=== PATIENT | male | born 1955 | race Caucasian/White ===

== ENCOUNTER 2022-08-02 17:03 | Emergency (ER) | payer MEDICARE ==
[~2022-08-02] VITALS: Ht 165.1 cm; Wt 78.0 kg
[2022-08-02 17:24] VITALS: BP 125/88
--- NOTE | 2022-08-02 17:59 | NUR ---
PATIENT CAME FROM [facility] @ [place] ADDRESS: [id number] [facility]. [facility] [id number] P:[phone]
--- NOTE | 2022-08-02 18:23 | NUR ---
[facility] CALLED, ETA 90 MINS.
--- NOTE | 2022-08-02 18:50 | NUR ---
PT UNABLE TO SIGN D/C FORM. FORM SIGNED BY ME AND COSIGNED BY ANOTHER ELISA LIRIANO.
--- NOTE | 2022-08-02 18:57 | NUR ---
REPORT GIVEN TO POPPY NURSE AT [facility]. PT EXPECTED BY STAFF TO COME BACK. DISCHARGE INSTRUCTIONS PROVIDED.
--- NOTE | 2022-08-02 21:29 | NUR ---
[facility] 325 AT BEDSIDE FOR PT TRANSPORT BACK TO HIS FACILITY. PT IS IN STABLE CONDITION. REPORT GIVEN.
== END 2022-08-02 21:53 | disposition home or self-care (01) ==
LOC: ER 17:05
DX: S62.102D Fracture of unspecified carpal bone, left wrist, subsequent encounter for fracture with routine healing (principal); Z86.69 Personal history of other diseases of the nervous system and sense organs; I10 Essential (primary) hypertension; X58.XXXD Exposure to other specified factors, subsequent encounter

== ENCOUNTER 2024-06-15 14:24 | Inpatient (IN) | payer MEDICARE ==
[~2024-06-15] VITALS: Ht 172.7 cm; Wt 83.5 kg
[2024-06-15 15:59] LABS: BASOPHILS % (AUTO) 0.8 % (0.0-2.0); EOSINOPHILS # (AUTO) 0.1 K/uL (0.0-0.7); EOSINOPHILS % (AUTO) 2.1 % (0.0-6.0); HEMATOCRIT 37 % (39-51); HEMOGLOBIN 12.3 g/dL (13.5-17.5); LYMPHOCYTES # (AUTO) 1.3 K/uL (0.8-4.8); LYMPHOCYTES % (AUTO) 25.1 % (20.0-44.0); MEAN CORPUSCULAR HEMOGLOBIN 26 PG (26.0-33.0); MEAN CORPUSCULAR HGB CONC 33 g/dl (31.0-36.0); MEAN CORPUSCULAR VOLUME 79 fL (80-96); MONOCYTES # (AUTO) 0.5 K/uL (0.1-1.30); MONOCYTES % (AUTO) 9.9 % (2.0-12.0); NEUTROPHILS # (AUTO) 3.2 K/uL (1.8-8.9); NEUTROPHILS % (AUTO) 62.1 % (43.0-81.0); PLATELET COUNT (AUTO) 185 K/uL (150-450); RED BLOOD CELL COUNT(AUTO) 4.73 MIL/uL (4.5-6.0); RED CELL DISTRIBUTION WIDTH 14.1 % (11.5-15.0); WHITE BLOOD COUNT (AUTO) 5.1 K/uL (4.3-11.0)
[2024-06-15 16:11] LABS: CALCIUM, SERUM 9.4 mg/dL (8.5-10.1); CARBON DIOXIDE 26 mmol/L (21-32); CHLORIDE 101 mmol/L (98-107); GLUCOSE 110 mg/dL (74-106); POTASSIUM 3.8 mmol/L (3.5-5.1); SODIUM SERUM 134 mmol/L (136-145); UREA NITROGEN, BLOOD 22 mg/dL (7-18)
[2024-06-15 16:16] LABS: ACETAMINOPHEN 0 ug/ml (10-30); ALANINE AMINOTRANSFERASE 38 U/L (12-78); ALBUMIN 3.2 g/dL (3.4-5.0); ALCOHOL, BLOOD < 3 mg/dL (0-10); ALKALINE PHOSPHATASE 84 U/L (46-116); ASPARTATE AMINOTRANSFERASE 19 U/L (15-37); BILIRUBIN,DIRECT 0.1 mg/dL (0.0-0.2); BILIRUBIN,TOTAL 0.2 mg/dL (0.2-1.0); SALICYLATE 1.5 mg/dL (2.8-20.0); TOTAL PROTEIN, SERUM 7.1 g/dL (6.4-8.2)
[2024-06-15] MEDS ORDERED: diphenhydrAMINE HCL 50 MG/ML VIAL ONE (16:43)
[2024-06-15] MEDS ORDERED: OLANZAPINE 10 MG VIAL IM ONE (16:43)
[2024-06-15] MEDS ORDERED: WATER FOR INJECTION,STERILE 10 ML ONE (16:46)
[2024-06-15] MEDS: diphenhydrAMINE HCL 50 MG/ML VIAL IM ONE (16:52)
[2024-06-15] MEDS: OLANZAPINE 10 MG VIAL IM ONE (16:53)
[2024-06-15] MEDS ORDERED: OLAN5TAB6 PO (18:09)
[2024-06-15] MEDS ORDERED: ATOR20TA PO (18:09)
[2024-06-15] MEDS ORDERED: HYDR12.55 PO (18:09)
[2024-06-15] MEDS ORDERED: GUAI200T5 PO (18:09)
[2024-06-15] MEDS ORDERED: OLAN15TA6 PO (18:09)
[2024-06-15] MEDS ORDERED: LORA-259 PO (18:09)
[2024-06-15] MEDS ORDERED: ZINC220T4 PO (18:09)
[2024-06-15] MEDS ORDERED: CHOL500062 PO (18:09)
[2024-06-15] MEDS ORDERED: OMEP20CA15 PO (18:09)
[2024-06-15] MEDS ORDERED: DIVA-78 PO (18:09)
[2024-06-15] MEDS ORDERED: TRAZ-182 PO (18:09)
[2024-06-15] MEDS ORDERED: QUET100T PO (18:09)
[2024-06-15] MEDS ORDERED: ASPI-1420 PO (18:09)
[2024-06-15] MEDS ORDERED: OLAN10TA6 PO (18:09)
[2024-06-15] MEDS ORDERED: ONDA4TAB11 PO (18:09)
[2024-06-15] MEDS ORDERED: LORA2TAB95 PO (18:09)
[2024-06-15] MEDS ORDERED: DEXT15LI PO (18:09)
[2024-06-15] MEDS ORDERED: [UNRECOGNIZED DRUG - CODE] PO (18:09)
[2024-06-15] MEDS ORDERED: QUET300T2 PO (18:09)
[2024-06-15] MEDS ORDERED: AMLO-212 PO (18:09)
[2024-06-15] MEDS ORDERED: LEVO-146 PO (18:09)
[2024-06-15 19:10] LABS: APPEARANCE,URINE CLEAR (CLEAR); BILIRUBIN,URINE NEGATIVE (NEGATIVE); BLOOD, URINE 2+ Ery/uL (NEGATIVE); COLOR,URINE YELLOW (YELLOW); KETONES,URINE NEGATIVE (NEGATIVE); LEUKOCYTE ESTERASE ,URINE NEGATIVE (NEGATIVE); NITRITE, URINE NEGATIVE (NEGATIVE); PH,URINE 7.5 (5.0-8.0); PROTEIN,URINE NEGATIVE (NEGATIVE); UGLUCOSE NEGATIVE (NEGATIVE); UROBILINOGEN,URINE 0.2 EU/dL (0.2)
[2024-06-15 19:16] LABS: AMPHETAMINE, URINE NEGATIVE (NEGATIVE); BARBITURATE, URINE NEGATIVE (NEGATIVE); BENZODIAZEPINE, URINE NEGATIVE (NEGATIVE); CANNABINOID, URINE NEGATIVE (NEGATIVE); COCCAINE, URINE NEGATIVE (NEGATIVE); OPIATE, URINE NEGATIVE (NEGATIVE); PHENCYCLIDINE SCREEN,URINE NEGATIVE (NEGATIVE)
[2024-06-15 20:30] VITALS: BP 148/90; TEMP 97.9; O2SAT 96
[2024-06-15] MEDS ORDERED: QUETIAPINE FUMARATE 25 MG TABLET PO PRN (20:30)
[2024-06-15] MEDS ORDERED: MAGNESIUM HYDROXIDE 30 ML UDC PO PRN (20:30)
[2024-06-15] MEDS ORDERED: MAG HYDROX/AL HYDROX/SIMETH 30 ML UDC PO PRN (20:30)
[2024-06-15] MEDS ORDERED: ACETAMINOPHEN 325 MG TABLET PO PRN (20:30)
[2024-06-15] MEDS: BLOOD SUGAR DIAGNOSTIC 1 EACH STRIP IN ONE (20:52)
[2024-06-15] MEDS: ATORVASTATIN 10 MG TABLET PO SCH (21:17)
[2024-06-15] MEDS: PROPRANOLOL HCL 10 MG TABLET PO SCH (21:20)
[2024-06-15 21:24] VITALS: BP 148/90; TEMP 97.9; O2SAT 96
[2024-06-15] MEDS: TRAZODONE 50 MG TABLET PO SCH (21:34)
[2024-06-15] MEDS: DIVALPROEX SODIUM 125 MG CAP.SPRINK PO SCH (21:34)
[2024-06-15] MEDS ORDERED: Medication Not On Formulary EA (Quetiapine Fumarate (Seroquel) 300 MG) PO SCH (22:00)
[2024-06-15] MEDS: OLANZAPINE ZYDIS 5 MG TAB.RAPDIS PO SCH (22:03)
[2024-06-15 22:27] LABS: ADD URINE CULTURE NO; BACTERIA,URINE Rare /HPF (None Seen); SQUAMOUS EPITHELIAL CELL,UR Rare /HPF (None Seen); WBC,URINE 0-2 /HPF (0-3)
[2024-06-16] MEDS: PANTOPRAZOLE 40 MG TABLET.DR PO SCH (07:30)
[2024-06-16] MEDS: LEVOTHYROXINE SODIUM 50 MCG TABLET PO SCH (07:31)
[2024-06-16 08:00] VITALS: BP 130/81; TEMP 97.9; O2SAT 96
[2024-06-16 08:33] LABS: ALBUMIN 3.1 g/dL (3.4-5.0); BILIRUBIN,TOTAL 0.3 mg/dL (0.2-1.0); CALCIUM, SERUM 9.3 mg/dL (8.5-10.1); CREATININE 0.7 mg/dL (0.6-1.3); POTASSIUM 4.3 mmol/L (3.5-5.1); TOTAL PROTEIN, SERUM 7.3 g/dL (6.4-8.2)
[2024-06-16 08:37] LABS: CHOLESTEROL 204 mg/dL (<200); HDL CHOLESTEROL 55 mg/dL (40-60); LDL 108 mg/dL (0-99); TRIGLYCERIDES 267 mg/dL (30-150)
[2024-06-16] MEDS: HYDROCHLOROTHIAZIDE 25 MG TABLET PO SCH (08:48)
[2024-06-16] MEDS: CHOLECALCIFEROL 1,000 UNIT TABLET (VIT D3) PO SCH (08:48)
[2024-06-16] MEDS: AMLODIPINE BESYLATE 5 MG TABLET PO SCH (08:49)
[2024-06-16] MEDS: ASPIRIN EC 81 MG TABLET.DR PO SCH (08:49)
[2024-06-16] MEDS: ZINC SULFATE 220 MG CAPSULE PO SCH (08:49)
[2024-06-16] MEDS: LORAZEPAM 1 MG TABLET PO SCH (08:53)
[2024-06-16] MEDS ORDERED: OLANZAPINE ZYDIS 5 MG TAB.RAPDIS PO SCH (09:00)
[2024-06-16] MEDS ORDERED: OLANZAPINE 10 MG PO SCH (09:00)
[2024-06-16] MEDS ORDERED: DIVALPROEX SODIUM 500 MG TABLET.DR PO SCH (09:00)
[2024-06-16] MEDS ORDERED: QUETIAPINE FUMARATE 100 MG TABLET PO SCH (09:00)
[2024-06-16 16:00] VITALS: BP 143/89; TEMP 97.7; O2SAT 97
[2024-06-16] MEDS ORDERED: OLANZAPINE 15 MG PO SCH (18:00)
[2024-06-16 20:00] VITALS: BP 118/82; TEMP 97.8; O2SAT 98
[2024-06-17 08:00] VITALS: BP 132/89; TEMP 97.9; O2SAT 96
[2024-06-17] MEDS ORDERED: Z GUARD REMEDY 4 OZ OINT TP PRN (10:00)
[2024-06-17] MEDS: Z GUARD REMEDY 4 OZ OINT TP SCH (10:17)
[2024-06-17 16:00] VITALS: BP 129/82; TEMP 97.6; O2SAT 97
[2024-06-17] MEDS: LORAZEPAM 1 MG TABLET PO SCH (16:22)
[2024-06-17 20:02] VITALS: BP 151/93; TEMP 98.2; O2SAT 95
[2024-06-17 22:00] VITALS: BP 151/93
[2024-06-18 08:00] VITALS: BP 132/94; TEMP 98.1; O2SAT 96
[2024-06-18 16:00] VITALS: BP 123/82; TEMP 97.7; O2SAT 97
[2024-06-19 08:00] VITALS: BP 129/86; TEMP 97.7; O2SAT 97
[2024-06-19 16:00] VITALS: BP 121/94; TEMP 98.9; O2SAT 97
[2024-06-19] MEDS: LORAZEPAM 0.5 MG TABLET PO SCH (16:10)
[2024-06-19] MEDS ORDERED: LORAZEPAM 0.5 MG TABLET PO SCH (17:00)
[2024-06-19 20:00] VITALS: BP 129/80; TEMP 98.6; O2SAT 98
[2024-06-19] MEDS: DIVALPROEX SODIUM 125 MG CAP.SPRINK PO SCH (21:16)
[2024-06-20] MEDS: ZOLPIDEM TARTRATE 5 MG TABLET PO PRN (02:53)
[2024-06-20 08:00] VITALS: BP 138/72; TEMP 97.8; O2SAT 98
[2024-06-20 16:00] VITALS: BP 132/90; TEMP 98; O2SAT 98
[2024-06-20 20:39] VITALS: BP 136/86; TEMP 98.1; O2SAT 96
[2024-06-21 08:00] VITALS: BP 118/66; TEMP 98.1; O2SAT 97
[2024-06-21 16:00] VITALS: BP 105/73; TEMP 98; O2SAT 96
[2024-06-21 19:59] VITALS: BP 125/76; TEMP 98.2; O2SAT 95
[2024-06-21 21:38] VITALS: BP 125/76; TEMP 98.2; O2SAT 95
[2024-06-22 08:00] VITALS: BP 126/71; TEMP 97.8; O2SAT 97
[2024-06-22 16:00] VITALS: BP 138/74; TEMP 97.8; O2SAT 96
[2024-06-22 20:37] VITALS: BP 138/89; TEMP 98.2; O2SAT 97
[2024-06-23 08:00] VITALS: BP 128/74; TEMP 98.6; O2SAT 97
[2024-06-23 16:00] VITALS: BP 122/74; TEMP 98.1; O2SAT 98
[2024-06-23 20:00] VITALS: BP 132/77; TEMP 97.9; O2SAT 95; O2SAT 98
[2024-06-24 08:00] VITALS: BP 128/92; TEMP 98; O2SAT 96
[2024-06-24 16:00] VITALS: BP 133/77; TEMP 97.6; O2SAT 98
[2024-06-24 19:47] VITALS: BP 113/93; TEMP 98.1; O2SAT 96
[2024-06-24 20:00] VITALS: BP 113/93; TEMP 98.1; O2SAT 96
[2024-06-25 08:45] VITALS: BP 130/82; TEMP 98.9; O2SAT 97
== END 2024-06-25 10:40 | DRG 885 ==
LOC: ER 14:28 → GPS 17:40
PROVIDERS: ADMIT Psychiatry & Neurology Psychiatry; ATTEND Student in an Organized Health Care Education/Training Program
DX: F39 Unspecified mood [affective] disorder (principal); F79 Unspecified intellectual disabilities; F03.94 Unspecified dementia, unspecified severity, with anxiety; F03.93 Unspecified dementia, unspecified severity, with mood disturbance; F03.92 Unspecified dementia, unspecified severity, with psychotic disturbance; E44.1 Mild protein-calorie malnutrition; E87.1 Hypo-osmolality and hyponatremia; F03.911 Unspecified dementia, unspecified severity, with agitation; F29 Unspecified psychosis not due to a substance or known physiological condition; I10 Essential (primary) hypertension; G40.909 Epilepsy, unspecified, not intractable, without status epilepticus; F84.0 Autistic disorder; Z20.822 Contact with and (suspected) exposure to COVID-19; Z79.890 Hormone replacement therapy; Z79.899 Other long term (current) drug therapy; Z79.82 Long term (current) use of aspirin; H54.8 Legal blindness, as defined in USA; E88.09 Other disorders of plasma-protein metabolism, not elsewhere classified; S02.2XXA Fracture of nasal bones, initial encounter for closed fracture; W22.01XA Walked into wall, initial encounter; Y92.099 Unspecified place in other non-institutional residence as the place of occurrence of the external cause; Z91.81 History of falling; D63.8 Anemia in other chronic diseases classified elsewhere; E03.9 Hypothyroidism, unspecified; E66.9 Obesity, unspecified; Z68.28 Body mass index [BMI] 28.0-28.9, adult; E78.5 Hyperlipidemia, unspecified; Z91.199 Patient's noncompliance with other medical treatment and regimen due to unspecified reason; Z73.6 Limitation of activities due to disability; R79.89 Other specified abnormal findings of blood chemistry; R53.1 Weakness
CPT/HCPCS: 36415; 70450-TC; 70486-TC; 71045-TC; 72125-TC; 80048-TC; 80053-TC; 80061-TC; 80076-TC; 80164-TC; 81001; 82962-TC; 84484-TC; 85025-TC; 87081-TC; G0480; J1200; J3490

== ENCOUNTER 2024-10-27 23:01 | Emergency (ER) | payer MEDICARE, OTHER ==
[~2024-10-27] VITALS: Ht 177.8 cm; Wt 86.2 kg
[~2024-10-27 23:01] MED LIST: AMLO-212 PO; ASPI-1420 PO; ATOR20TA PO; CHOL500062 PO; DEXT15LI PO; DIVA-78 PO; GUAI200T5 PO; HYDR12.55 PO; LEVO-146 PO; LORA-259 PO; LORA2TAB95 PO; OLAN10TA6 PO; OLAN15TA6 PO; OLAN5TAB6 PO; OMEP20CA15 PO; ONDA4TAB11 PO; QUET100T PO; QUET300T2 PO; TRAZ-182 PO; ZINC220T4 PO; [UNRECOGNIZED DRUG - CODE] PO
[2024-10-28 00:07] VITALS: BP 114/61; TEMP 98.2; O2SAT 95
[2024-10-28 00:15] LABS: BASOPHILS % (AUTO) 0.8 % (0.0-2.0); EOSINOPHILS # (AUTO) 0.1 K/uL (0.0-0.7); LYMPHOCYTES # (AUTO) 2.1 K/uL (0.8-4.8); MONOCYTES # (AUTO) 0.6 K/uL (0.1-1.30); WHITE BLOOD COUNT (AUTO) 5.3 K/uL (4.3-11.0)
[2024-10-28 00:27] LABS: EOSINOPHILS % (AUTO) 2.8 % (0.0-6.0); HEMATOCRIT 33 % (39-51); MEAN CORPUSCULAR HEMOGLOBIN 26 PG (26.0-33.0); MEAN CORPUSCULAR HGB CONC 33 g/dl (31.0-36.0); MEAN CORPUSCULAR VOLUME 78 fL (80-96); MONOCYTES % (AUTO) 10.9 % (2.0-12.0); NEUTROPHILS # (AUTO) 2.4 K/uL (1.8-8.9); NEUTROPHILS % (AUTO) 45.5 % (43.0-81.0); PLATELET COUNT (AUTO) 151 K/uL (150-450); RED BLOOD CELL COUNT(AUTO) 4.24 MIL/uL (4.5-6.0); RED CELL DISTRIBUTION WIDTH 14.6 % (11.5-15.0)
[2024-10-28 00:32] LABS: CALCIUM, SERUM 8.3 mg/dL (8.5-10.1); CARBON DIOXIDE 32 mmol/L (21-32); CHLORIDE 103 mmol/L (98-107); CREATININE 1.2 mg/dL (0.6-1.3); GLUCOSE 98 mg/dL (74-106); POTASSIUM 3.9 mmol/L (3.5-5.1); SODIUM SERUM 139 mmol/L (136-145); UREA NITROGEN, BLOOD 19 mg/dL (7-18)
[2024-10-28 00:44] LABS: ALANINE AMINOTRANSFERASE 19 U/L (12-78); ALBUMIN 3.2 g/dL (3.4-5.0); ALKALINE PHOSPHATASE 68 U/L (46-116); ASPARTATE AMINOTRANSFERASE 14 U/L (15-37); BILIRUBIN,DIRECT 0.1 mg/dL (0.0-0.2); BILIRUBIN,TOTAL 0.2 mg/dL (0.2-1.0); NT-PRO BNP 139 pg/mL (0-125); TOTAL PROTEIN, SERUM 6.4 g/dL (6.4-8.2)
[2024-10-28 01:51] LABS: INR 1.09 (0.91-1.10); PARTIAL THROMBOPLASTIN TIME 25.2 SEC (24.3-34.3); PROTHROMBIN TIME 11.5 SECS (9.2-11.1)
== END 2024-10-28 02:21 ==
LOC: ER 23:13
DX: R60.0 Localized edema (principal); M79.89 Other specified soft tissue disorders; F84.0 Autistic disorder; I10 Essential (primary) hypertension; Z79.82 Long term (current) use of aspirin; Z79.899 Other long term (current) drug therapy
CPT/HCPCS: 36415; 71045-TC; 80048-TC; 80076-TC; 83880; 84484-TC; 85025-TC; 85730-TC

== ENCOUNTER 2024-12-06 16:59 | Inpatient (IN) | payer MEDICARE, OTHER ==
[~2024-12-06] VITALS: Ht 172.7 cm; Wt 83.0 kg
[2024-12-06 17:40] LABS: BASOPHILS % (AUTO) 0.3 % (0.0-2.0); HEMATOCRIT 35 % (39-51); HEMOGLOBIN 11.7 g/dL (13.5-17.5); LYMPHOCYTES # (AUTO) 1.1 K/uL (0.8-4.8); LYMPHOCYTES % (AUTO) 10.1 % (20.0-44.0); MEAN CORPUSCULAR HEMOGLOBIN 26 PG (26.0-33.0); MEAN CORPUSCULAR HGB CONC 33 g/dl (31.0-36.0); MEAN CORPUSCULAR VOLUME 79 fL (80-96); MONOCYTES # (AUTO) 0.9 K/uL (0.1-1.30); MONOCYTES % (AUTO) 8.6 % (2.0-12.0); NEUTROPHILS # (AUTO) 8.9 K/uL (1.8-8.9); PLATELET COUNT (AUTO) 146 K/uL (150-450); RED BLOOD CELL COUNT(AUTO) 4.47 MIL/uL (4.5-6.0); RED CELL DISTRIBUTION WIDTH 15.5 % (11.5-15.0)
[2024-12-06 17:48] LABS: CARBON DIOXIDE 28 mmol/L (21-32); CHLORIDE 100 mmol/L (98-107); CREATININE 1.5 mg/dL (0.6-1.3); GLUCOSE 183 mg/dL (74-106); SODIUM SERUM 135 mmol/L (136-145); UREA NITROGEN, BLOOD 24 mg/dL (7-18)
[2024-12-06 17:52] LABS: INR 1.26 (0.91-1.10); PARTIAL THROMBOPLASTIN TIME 27.7 SEC (24.3-34.3); PROTHROMBIN TIME 12.9 SECS (9.2-11.1)
[2024-12-06 17:54] LABS: ALANINE AMINOTRANSFERASE 32 U/L (12-78); ALKALINE PHOSPHATASE 62 U/L (46-116); ASPARTATE AMINOTRANSFERASE 23 U/L (15-37); BILIRUBIN,DIRECT 0.1 mg/dL (0.0-0.2); BILIRUBIN,TOTAL 0.4 mg/dL (0.2-1.0); TOTAL PROTEIN, SERUM 6.5 g/dL (6.4-8.2)
[2024-12-06 17:58] LABS: LACTIC ACID 2.9 mmol/L (0.4-2.0)
[2024-12-06] MEDS: IV NS 0.9% 1,000 ML BAG IV ONE (18:00)
[2024-12-06] MEDS ORDERED: PIPERACI/TAZO 3.375GM/D5W 50ML PB IV ONE (18:28)
[2024-12-06] MEDS: PIPERACILLIN /TAZOBACTAM 3.375 G in IV D5W 50 ML IV ONE (18:30)
[2024-12-06] MEDS ORDERED: ACET-2812 PO (18:32)
[2024-12-06] MEDS ORDERED: TOLN108P2 TP (18:32)
[2024-12-06] MEDS ORDERED: OLAN10TA6 PO (18:32)
[2024-12-06] MEDS ORDERED: DIVA125C5 PO (18:32)
[2024-12-06] MEDS ORDERED: LORA-258 PO (18:32)
[2024-12-06] MEDS ORDERED: PROP10TA68 PO (18:32)
[2024-12-06] MEDS ORDERED: ZOLP5TAB8 PO (18:32)
[2024-12-06 18:55] LABS: APPEARANCE,URINE Clear (CLEAR); BILIRUBIN,URINE Negative (NEGATIVE); BLOOD, URINE Moderate Ery/uL (NEGATIVE); COLOR,URINE YELLOW (YELLOW); KETONES,URINE Trace mg/dL (NEGATIVE); LEUKOCYTE ESTERASE ,URINE Negative (NEGATIVE); NITRITE, URINE Negative (NEGATIVE); PROTEIN,URINE Negative (NEGATIVE); UGLUCOSE Negative (NEGATIVE); UROBILINOGEN,URINE 0.2 EU/dL (0.2)
[2024-12-06 18:59] LABS: ADD URINE CULTURE NO; BACTERIA,URINE None seen /HPF (None Seen); SQUAMOUS EPITHELIAL CELL,UR None Seen /HPF (None Seen); WBC,URINE 0-2 /HPF (0-3)
[2024-12-06] MEDS ORDERED: ONDANSETRON HCL/PF 4 MG/2 ML VIAL IVP PRN (20:30)
[2024-12-06] MEDS ORDERED: ACETAMINOPHEN 650 MG/SUPP.RECT RC PRN (20:30)
[2024-12-06] MEDS ORDERED: Z GUARD REMEDY 4 OZ OINT TP PRN (20:30)
[2024-12-06 22:00] VITALS: BP 149/81; TEMP 98.4; O2SAT 95
[2024-12-06] MEDS: ENOXAPARIN SODIUM 40 MG/0.4 ML DISP.SYRIN SQ SCH (22:52)
[2024-12-06] MEDS: IV NS 0.9% 1,000 ML IV PRN (22:57)
[2024-12-06] MEDS ORDERED: methylPREDNISolone SOD SUCC 125 MG/2ML VIAL ONE (23:08)
[2024-12-06] MEDS: methylPREDNISolone SOD SUCC 125 MG/2ML VIAL IV ONE (23:12)
[2024-12-07] VITALS (14 sets, daily range): BP systolic 112–142; BP diastolic 62–88; TEMP 97–98.2; O2SAT 92–100
[2024-12-07] MEDS: ZOSYN IVPB 3.375 G in IV D5W 50ml IV SCH (00:14)
[2024-12-07] MEDS: ALBUTEROL FS 2.5 MG/3 ML VIAL.NEB NEB SCH (01:00)
[2024-12-07] MEDS: IPRATROPIUM NEB FS 0.5 MG/2.5 ML AMPUL.NEB NEB SCH (01:00)
[2024-12-07] MEDS ORDERED: PIPERACI/TAZO 3.375GM/D5W 50ML PB IV ONE (05:33)
[2024-12-07] MEDS: methylPREDNISolone SOD SUCC 40 MG/ML VIAL IV SCH (05:42)
[2024-12-07 06:25] LABS: BASOPHILS % (AUTO) 0.1 % (0.0-2.0); HEMATOCRIT 33 % (39-51); HEMOGLOBIN 11.2 g/dL (13.5-17.5); LYMPHOCYTES # (AUTO) 0.6 K/uL (0.8-4.8); LYMPHOCYTES % (AUTO) 5.3 % (20.0-44.0); MEAN CORPUSCULAR HEMOGLOBIN 26 PG (26.0-33.0); MEAN CORPUSCULAR HGB CONC 34 g/dl (31.0-36.0); MEAN CORPUSCULAR VOLUME 78 fL (80-96); MONOCYTES # (AUTO) 0.2 K/uL (0.1-1.30); MONOCYTES % (AUTO) 1.7 % (2.0-12.0); NEUTROPHILS # (AUTO) 9.9 K/uL (1.8-8.9); NEUTROPHILS % (AUTO) 92.9 % (43.0-81.0); PLATELET COUNT (AUTO) 115 K/uL (150-450); RED BLOOD CELL COUNT(AUTO) 4.25 MIL/uL (4.5-6.0); RED CELL DISTRIBUTION WIDTH 15.2 % (11.5-15.0); WHITE BLOOD COUNT (AUTO) 10.6 K/uL (4.3-11.0)
[2024-12-07 06:29] LABS: ALBUMIN 2.9 g/dL (3.4-5.0); BILIRUBIN,DIRECT 0.2 mg/dL (0.0-0.2); BILIRUBIN,TOTAL 0.5 mg/dL (0.2-1.0); CALCIUM, SERUM 8.6 mg/dL (8.5-10.1); CREATININE 1.1 mg/dL (0.6-1.3); PHOSPHORUS 2.3 mg/dL (2.5-4.9); TOTAL PROTEIN, SERUM 6.9 g/dL (6.4-8.2)
[2024-12-07 06:35] LABS: POTASSIUM 3.8 mmol/L (3.5-5.1); THYROID STIMULATING HORMONE 1.03 uIU/mL (0.358-3.74)
[2024-12-07] MEDS: PANTOPRAZOLE 40 MG VIAL IV SCH (09:01)
[2024-12-07] MEDS: Sodium Phosphate 15 MMOL in IV NS 0.9% 245 ML IV SCH (16:54)
[2024-12-08] VITALS (14 sets, daily range): BP systolic 130–148; BP diastolic 70–90; TEMP 97.5–98.4; O2SAT 93–100
[2024-12-08 06:26] LABS: BASOPHILS % (AUTO) 0.1 % (0.0-2.0); HEMATOCRIT 33 % (39-51); LYMPHOCYTES # (AUTO) 0.3 K/uL (0.8-4.8); LYMPHOCYTES % (AUTO) 2.5 % (20.0-44.0); MEAN CORPUSCULAR HEMOGLOBIN 26 PG (26.0-33.0); MEAN CORPUSCULAR HGB CONC 34 g/dl (31.0-36.0); MEAN CORPUSCULAR VOLUME 77 fL (80-96); MONOCYTES # (AUTO) 0.4 K/uL (0.1-1.30); MONOCYTES % (AUTO) 3.4 % (2.0-12.0); NEUTROPHILS # (AUTO) 9.6 K/uL (1.8-8.9); PLATELET COUNT (AUTO) 124 K/uL (150-450); RED BLOOD CELL COUNT(AUTO) 4.23 MIL/uL (4.5-6.0); RED CELL DISTRIBUTION WIDTH 15.8 % (11.5-15.0); WHITE BLOOD COUNT (AUTO) 10.2 K/uL (4.3-11.0)
[2024-12-08 06:48] LABS: THYROID STIMULATING HORMONE 0.99 uIU/mL (0.358-3.74)
[2024-12-08 10:28] LABS: CALCIUM, SERUM 8.7 mg/dL (8.5-10.1); CREATININE 1.1 mg/dL (0.6-1.3); MAGNESIUM 2.3 mg/dL (1.8-2.4); PHOSPHORUS 2.5 mg/dL (2.5-4.9); POTASSIUM 3.6 mmol/L (3.5-5.1)
[2024-12-09] VITALS: BP 135/83; TEMP 97.8; O2SAT 95
[2024-12-09 01:14] VITALS: O2SAT 94
[2024-12-09 01:26] VITALS: O2SAT 96
[2024-12-09 04:00] VITALS: BP 138/81; TEMP 97.9; O2SAT 96
[2024-12-09 06:30] LABS: BASOPHILS % (AUTO) 0.1 % (0.0-2.0); HEMATOCRIT 34 % (39-51); HEMOGLOBIN 11.1 g/dL (13.5-17.5); LYMPHOCYTES # (AUTO) 0.5 K/uL (0.8-4.8); LYMPHOCYTES % (AUTO) 6.1 % (20.0-44.0); MEAN CORPUSCULAR HEMOGLOBIN 26 PG (26.0-33.0); MEAN CORPUSCULAR HGB CONC 33 g/dl (31.0-36.0); MEAN CORPUSCULAR VOLUME 78 fL (80-96); MONOCYTES # (AUTO) 0.5 K/uL (0.1-1.30); MONOCYTES % (AUTO) 6.6 % (2.0-12.0); NEUTROPHILS # (AUTO) 7.1 K/uL (1.8-8.9); NEUTROPHILS % (AUTO) 87.2 % (43.0-81.0); PLATELET COUNT (AUTO) 140 K/uL (150-450); RED BLOOD CELL COUNT(AUTO) 4.28 MIL/uL (4.5-6.0); RED CELL DISTRIBUTION WIDTH 15.9 % (11.5-15.0); WHITE BLOOD COUNT (AUTO) 8.1 K/uL (4.3-11.0)
[2024-12-09 06:57] LABS: CALCIUM, SERUM 8.2 mg/dL (8.5-10.1); CREATININE 0.9 mg/dL (0.6-1.3); MAGNESIUM 2.6 mg/dL (1.8-2.4); PHOSPHORUS 2.7 mg/dL (2.5-4.9); POTASSIUM 3.5 mmol/L (3.5-5.1)
[2024-12-09] MEDS: methylPREDNISolone SOD SUCC 40 MG/ML VIAL IV SCH (08:22)
[2024-12-09 09:00] LABS: LYMPHOCYTES % (MANUAL) 7 % (16-48); MONOCYTES % (MANUAL) 10 % (0-11.0); NEUTROPHILS % (MANUAL) 83 (42-76)
[2024-12-09 09:01] LABS: ANISOCYTOSIS 1+; HYPOCHROMASIA 1+; PLATELET ESTIMATE ADEQUATE
[2024-12-09] MEDS ORDERED: METH4TAB17 PO (09:16)
[2024-12-09] MEDS ORDERED: LEVO500T90 PO (09:16)
== END 2024-12-09 13:40 | DRG 871 ==
LOC: ER 17:05 → TELE1 20:27
PROVIDERS: ADMIT Nurse Practitioner Family; ATTEND Nurse Practitioner Acute Care
DX: A41.9 Sepsis, unspecified organism (principal); J15.9 Unspecified bacterial pneumonia; J69.0 Pneumonitis due to inhalation of food and vomit; N17.0 Acute kidney failure with tubular necrosis; J96.01 Acute respiratory failure with hypoxia; D68.59 Other primary thrombophilia; E87.1 Hypo-osmolality and hyponatremia; E87.20 Acidosis, unspecified; E44.1 Mild protein-calorie malnutrition; F03.93 Unspecified dementia, unspecified severity, with mood disturbance; F03.94 Unspecified dementia, unspecified severity, with anxiety; F84.0 Autistic disorder; G93.40 Encephalopathy, unspecified; J44.0 Chronic obstructive pulmonary disease with (acute) lower respiratory infection; Z20.822 Contact with and (suspected) exposure to COVID-19; I10 Essential (primary) hypertension; F79 Unspecified intellectual disabilities; G40.909 Epilepsy, unspecified, not intractable, without status epilepticus; E88.09 Other disorders of plasma-protein metabolism, not elsewhere classified; E78.5 Hyperlipidemia, unspecified; M89.8X9 Other specified disorders of bone, unspecified site; E66.9 Obesity, unspecified; Z68.27 Body mass index [BMI] 27.0-27.9, adult; Z79.890 Hormone replacement therapy; Z79.82 Long term (current) use of aspirin; Z79.899 Other long term (current) drug therapy; D50.9 Iron deficiency anemia, unspecified; D63.8 Anemia in other chronic diseases classified elsewhere; E03.9 Hypothyroidism, unspecified; I25.10 Atherosclerotic heart disease of native coronary artery without angina pectoris; K21.9 Gastro-esophageal reflux disease without esophagitis; E86.9 Volume depletion, unspecified; Y95 Nosocomial condition; R73.9 Hyperglycemia, unspecified; F29 Unspecified psychosis not due to a substance or known physiological condition
CPT/HCPCS: 36415; 71045-TC; 71250-TC; 74018; 80048-TC; 80076-TC; 81001; 83605-TC; 83735-TC; 84100-TC; 84443-TC; 84550-TC; 85025-TC; 85730-TC; 87040-TC; 87081-TC; 87086-TC; 92526; 92611-TC; 94760-TC; 94762-TC; 94799-TC; A4223; A9563; G0378; J1650; J2470; J2543; J2919; J7030; J7050; J7060